=== PATIENT | female | born 1995 | race Caucasian/White ===

== ENCOUNTER 2023-09-16 10:11 | Emergency (ER) | payer MEDICAID ==
[~2023-09-16] VITALS: Ht 172.7 cm; Wt 91.0 kg
[2023-09-16 10:12] VITALS: PULSE 102
[2023-09-16 10:15] VITALS: BP 132/81; TEMP 98.1; O2SAT 97
[2023-09-16] MEDS ORDERED: PHEN355L3 PO (12:15)
[2023-09-16 12:45] VITALS: RESP 16
== END 2023-09-16 12:00 | disposition home or self-care (01) ==
LOC: ER 10:11
DX: B34.9 Viral infection, unspecified (principal); Z20.822 Contact with and (suspected) exposure to COVID-19
CPT/HCPCS: 87420; 87426; 99283